=== PATIENT | female | born 1965 | race Caucasian/White ===

== ENCOUNTER 2019-07-08 08:01 | Day surgery (SDC) | payer MEDICAID ==
[2019-07-08] MEDS ORDERED: PROPOFOL 10 MG/ML VIAL IV ONE (08:02)
[2019-07-08] MEDS ORDERED: LIDOCAINE 2% MDV (20MG/ML) 20ML VIAL IV ONE (08:02)
--- NOTE | 2019-07-09 10:20 | Operative Note ---
DATE OF SURGERY: 07/08/2019 SURGEON: Miguel Lazcano DO PREOPERATIVE DIAGNOSIS: Screening colonoscopy. POSTOPERATIVE DIAGNOSIS: Screening colonoscopy. OPERATION: Colonoscopy to the cecum. PROCEDURE: The patient is a 53-year-old female who was brought to the endoscopy suite and placed in a supine position. Appropriate monitoring was placed including nasal O2, pulse oximetry, and blood pressure cuff. The patient was rotated into the left lateral position. Propofol anesthesia was titrated to effect. At this time, a digital rectal exam was done which revealed no internal masses. At this time, a well-lubricated [id number] colonoscope was inserted into the patient's rectum and advanced to the level of the sigmoid, up the descending, over the transverse colon, down the ascending colon to the cecum. Once the cecum was reached, it was identified by the appendiceal orifice and ileocecal valve. Respective photograph was taken. The scope was slowly withdrawn inspecting all mucosal surface areas. There were normal folds and distensibility seen. All parts were inspected and found to be free of any pathology. There were no polyps, tumors, or growths. Once the level of the rectum was reached, retroflexion was done. There were grade 1 hemorrhoids. The scope was straightened, gas was evacuated, scope was fully removed. FINDINGS AT THE TIME OF COLONOSCOPY: Grade 1 hemorrhoids. Recommend repeating this in 10 years or sooner if any problems arise. KAMINI
== END 2019-07-08 10:33 | disposition home or self-care (01) ==
LOC: HOP 08:01
PROVIDERS: ATTEND Surgery
DX: Z12.11 Encounter for screening for malignant neoplasm of colon (principal); Z86.010 Personal history of colon polyps